=== PATIENT | male | born 2000 | race Two or more races ===

== ENCOUNTER 2025-07-24 15:40 | Emergency (ER) | payer MEDICAID, OTHER ==
[~2025-07-24] VITALS: Ht 177.8 cm; Wt 65.0 kg
--- NOTE | 2025-07-24 16:22 | ED.PDOC ---
Musculoskeletal HPI Comments This is a 24-year-old male who comes in with pain in his right ankle he believes that he rolled it earlier today he has noticed some bruising and decided to come in for evaluation.. Chief Complaint: Lower Extremity Time Seen by MD: 16:00 Reviewed Notes: Nurses Notes, Medications, Allergies Allergies: Coded Allergies: NO KNOWN ALLERGIES (Unverified , 07/24/25) Information Source: Patient Mode of Arrival: Ambulatory Past Medical History PAST MEDICAL HISTORY: Denies Social History Smoker: Non-Smoker Alcohol: Denies ETOH Use Drugs: Denies Drug Use Lives In: Home Musculoskeletal: reports: joint pain, joint swelling (Right ankle pain) Physical Exam General Appearance: No Apparent Distress, Normal HEENT: Normal ENT Inspection, PERRL/EOMI, Pharynx Normal, TMs Normal Neck: Non-Tender, Normal Inspection, Supple Respiratory: Lungs Clear, No Respiratory Distress, Normal Breath Sounds Cardiovascular: Regular Rate/Rhythm Breast Exam: Deferred Gastrointestinal: Non Tender, Soft Genitalia: Deferred Pelvic: Deferred Rectal: Deferred Extremities: Swelling, Tender, Other (Right lateral malleolus and surrounding tissue tenderness) Neurologic: Alert, No Motor Deficits, Normal Mood Cerebellar Function: NOT DONE Reflexes: Normal Skin: Bruises Lymphatic: No Adenopathy Was a procedure done? Was a procedure done?: No Differential Diagnosis EXT Differential Diagnosis: Cellulitis, Fracture, Dislocation X-Ray, Labs, Meds, VS Vital Signs Date Time Temp Pulse Resp B/P (MAP) Pulse Ox O2 Delivery O2 Flow Rate FiO2 07/24/25 15:41 98.4 103 16 134/90 96 98.4 X-Ray, Labs, Meds, VS Comment Patient seen in examined by me. Patient will need an x-ray of his right ankle. Patient will be placed in an Karthik wrap and crutches and given pain meds. ORDERING PHYSICIAN: SARAN CAMACHO [employer] PROCEDURE(s): RFOOT - R FOOT 3 VIEW XRAY REASON: trauma ORDER NUMBER(s): [id number], ACCESSION NUMBER(s): [id number] EXAM: XY R FOOT 3 VIEW XRAY INDICATION: trauma TECHNIQUE: 3 views of the right foot COMPARISON: None FINDINGS/IMPRESSION: Question trace radiolucency in the region of the cuboid which may represent nondisplaced fracture . No discrete fracture seen of the 5th metatarsal tuberosity ATED BY: BERTRAM KOVACS MD DICTATED DATE/TIME: 07/24/251642 SIGNED BY: BERTRAM KOVACS MD SIGNED DATE/TIME: 07/24/251642 Time of 1ST Reevaluation: 17:07 Reevaluation 1ST: Improved Patient Education/Counseling: Diagnosis, Treatment, Prognosis, Need For Follow Up Family Education/Counseling: Diagnosis, Treatment, Prognosis, Need For Follow Up Departure 1 Departure Time of Disposition: 17:07 Impression: Primary Impression: Sprain of right ankle Disposition: 01 HOME / SELF CARE / HOMELESS Condition: Good Additional Instructions: Wear your karthik no pain with locking at all times until you have no pain when walking Use crutches until you have no pain with walking Take Motrin as needed for pain and swelling e-Prescriptions Ibuprofen Micronized (Ibuprofen) 600 Mg Tab 600 MG PO Q6HPRN PRN for 5 Days, #20 TAB Prov: SARAN CAMACHO 07/24/25 Discharged With: Self, Relative (Mother) Critical Care Note Critical Care Time?: No Stability Stability form required: SARAN Farmer Jul 24, 2025 16:22
--- NOTE | 2025-07-24 16:45 | DVH ---
EXAM: XY R FOOT 3 VIEW XRAY INDICATION: trauma TECHNIQUE: 3 views of the right foot COMPARISON: None FINDINGS/IMPRESSION: Question trace radiolucency in the region of the cuboid which may represent nondisplaced fracture . No discrete fracture seen of the 5th metatarsal tuberosity
[2025-07-24] MEDS ORDERED: IBUP1TAB5 PO (17:10)
[2025-07-24 17:13] VITALS: BP 115/68; PULSE 102; RESP 20; TEMP 98.7; O2SAT 96
== END 2025-07-24 17:23 | disposition home or self-care (01) ==
LOC: ER 15:40
DX: S93.401A Sprain of unspecified ligament of right ankle, initial encounter (principal); X58.XXXA Exposure to other specified factors, initial encounter; Y93.89 Activity, other specified; Y92.89 Other specified places as the place of occurrence of the external cause; Y99.8 Other external cause status
CPT/HCPCS: 73630